=== PATIENT | male | born 1985 | race Two or more races ===

== ENCOUNTER 2022-07-11 12:59 | Emergency (ER) | payer OTHER ==
[~2022-07-11] VITALS: Ht 180.3 cm; Wt 100.0 kg
[2022-07-11] MEDS ORDERED: TETANUS-DIPTH-ACEL PERTUSSIS 0.5ML SYR Tdap IM ONE (15:45)
[2022-07-11] MEDS ORDERED: cefTRIAXone SOD 1,000 MG VL IM ONE (15:45)
[2022-07-11] MEDS ORDERED: IBUPROFEN 800 MG TAB PO ONE (15:45)
[2022-07-11] MEDS ORDERED: CEPH-510 PO (16:01)
[2022-07-11] MEDS ORDERED: IBUP800T27 PO (16:01)
[2022-07-11 16:17] VITALS: BP 134/76
== END 2022-07-11 16:25 | disposition home or self-care (01) ==
LOC: ER 12:59
DX: S92.422A Displaced fracture of distal phalanx of left great toe, initial encounter for closed fracture (principal); S91.112A Laceration without foreign body of left great toe without damage to nail, initial encounter; Z79.1 Long term (current) use of non-steroidal anti-inflammatories (NSAID); Z79.899 Other long term (current) drug therapy; W22.8XXA Striking against or struck by other objects, initial encounter; Y93.89 Activity, other specified; Y92.89 Other specified places as the place of occurrence of the external cause; Y99.8 Other external cause status
CPT/HCPCS: 12001; 73630; 90471; 90715; 96372; 99284; J0696; J2001